=== PATIENT | male | born 1975 | race Caucasian/White ===

== ENCOUNTER → 2017-01-03 | Day surgery (SDC) | payer MEDICAID ==
[~2017-01-03] MED LIST: BUPIVACAINE 0.25% 30 ML SDV ONE; DEPO METHYLPREDNISOLONE 40 MG/ML SDV ONE
== END | disposition home or self-care (01) ==
LOC: FIMAGING 10:51
PROVIDERS: ATTEND Neurological Surgery
DX: M53.3 Sacrococcygeal disorders, not elsewhere classified (principal); M54.9 Dorsalgia, unspecified
CPT/HCPCS: J1030